=== PATIENT | male | born 1970 | race Caucasian/White ===

== ENCOUNTER 2022-09-14 16:40 | Emergency (ER) | payer BC, SELFPAY ==
--- NOTE | 2022-09-14 16:40 | ECG_ITS ---
APPROVED REPORT Exam: Resting ECG HR:64 bpm ECG Measurements Heart Rate [address] 160 P 39 QRSd 93 QRS 33 QT 378 T 18 QTc 388 Conclusion SINUS RHYTHM NONSPECIFIC T-WAVE ABNORMALITY BORDERLINE ECG UNCONFIRMED REPORT Electronically signed by : Fabian Freeman MD 09/16/2022 16:53:50
[2022-09-14 16:42] VITALS: BP 163/99; PULSE 77; RESP 18; TEMP 36.6; O2SAT 99; BMI 28.9
--- NOTE | 2022-09-14 17:13 | XR_ITS ---
PROCEDURE INFORMATION: Exam: XR Chest Exam date and time: 09/14/2022 5:34 PM Age: 52 years old Clinical indication: Sternal or substernal pain; Additional info: Chest pain TECHNIQUE: Imaging protocol: Radiologic exam of the chest. Views: 1 view. COMPARISON: No relevant prior studies available. FINDINGS: Tubes, catheters and devices: Surgical clips project over gastric region. Lungs: Low lung volumes. Pulmonary vasculature grossly normal. Somewhat bandlike alveolar density in the left lung base, atelectasis versus pneumonia. Pleural spaces: No pleural effusion. No pneumothorax. Heart/Mediastinum: Heart size within normal limits for portable AP technique. No tracheal/mediastinal shift. Bones/joints: No acute osseous abnormalities are identified. IMPRESSION: Alveolar opacity in the left lung base, atelectasis versus pneumonia.
[2022-09-14 17:22] LABS: Basophils # 0.1 K/mm3 (0-0.2); Eosinophils # 0.1 K/mm3 (0.0-0.4); Eosinophils % 1.5 % (0.1-12.0); Hematocrit 46.3 % (42.0-52.0); Hemoglobin 15.3 g/dL (14.1-18.0); Lymphocytes % 31.7 % (10-50); Mean Corpuscular Volume 91.1 fl (80-94); Mean Platelet Volume 9.6 fl (7.4-10.4); Monocytes # 0.3 K/mm3 (0.1-1.0); Monocytes % 5.3 % (1.7-9.3); Neutrophils # 3.9 K/mm3 (1.8-7.8); Neutrophils % 60.6 % (37.0-80.0); Platelet Count 207 K/mm3 (142-424); Red Blood Count 5.09 M/mm3 (4.60-6.20); Red Cell Distribution Width 13.5 % (11.5-17.5); White Blood Count 6.4 K/mm3 (4.8-10.8)
[2022-09-14 17:24] LABS: Magnesium 2.1 mg/dl (1.6-2.3)
[2022-09-14 17:29] LABS: C-Reactive Protein 1.2 mg/L (0-4)
[2022-09-14 17:30] VITALS: BP 145/103; PULSE 69; RESP 20; O2SAT 99
[2022-09-14 17:38] LABS: NT Pro Brain Natriuretic Pep. 90.9 pg/mL (0-125)
[2022-09-14 17:39] LABS: Troponin I < 0.01 ng/ml (0.00-0.034)
[2022-09-14 18:00] VITALS: BP 144/98; PULSE 65; RESP 16; O2SAT 98
[2022-09-14 18:15] LABS: Alanine Aminotransferase 30 U/L (12-78); Albumin Level 4.4 g/dl (3.5-5.0); Albumin/Globulin Ratio 1.6 (1.1-1.8); Alkaline Phosphatase 119 U/L (38-126); Anion Gap 10.8 mEq/L (5-15); Aspartate Amino Transferase 35 U/L (17-59); Bilirubin,Total 0.2 mg/dl (0.2-1.3); Blood Urea Nitrogen 22 mg/dl (9-20); Calcium 9.6 mg/dl (8.4-10.2); Carbon Dioxide 27 mmol/L (22.0-30.0); Chloride 105 mmol/L (98-107); Creatinine Clearance Estimated 115 mL/min (50-200); Estimated Glomerular Filt Rate 70 ml/min (>60); GFR (African American) 85 ML/MIN (>60); Globulin 2.7 g/dL (1.3-3.2); Glucose 131 mg/dl (74-100); Potassium 3.8 mmoL/L (3.5-5.1); Sodium 139 mmol/L (136-145); Total Protein,Serum 7.1 g/dl (6.3-8.2)
[2022-09-14 18:30] VITALS: BP 144/94; PULSE 60; RESP 18; O2SAT 99
--- NOTE | 2022-09-14 19:32 | [facility].EDCP ---
Discharge Plan Disposition Patient Disposition: Home, Self-Care Condition: Good Referrals Follow up/Referrals: Lucio Reid MD [Staff Physician] - See instructions Provider,MD Dev [Primary Care Provider] - See instructions Fabian Freeman MD [Staff Physician] - See instructions Clinical Impressions Clinical Impression: Chest pain Instructions Patient Instructions: DI for Chest Pain Discharge ED Provider: Bonifacio Rodriges Chest Pain HPI General Chief Complaint: Chest Pain Stated Complaint: chest pain Time Seen by Provider: 09/14/22 17:00 Mode of Arrival: Ambulatory Source of Information: Patient Limitations: No Limitations Description of Symptoms (Recalled from ER Triage Doc. by RN): c/o center chest pain that started a few days ago. Denies any radiation. History of Present Illness HPI narrative: Patient is a 52-year-old male with no pertinent past medical history who presents with chest pain. He says that he moved to [place] 4 years ago. He has not ever establish care with a PCP while here. He says he has no medical problems. He says that he has started to get some right-sided chest pain that has been there intermittently for the last 4 days. It does not radiate anywhere. He denies any neck pain. Denies any arm pain. Denies any numbness or tingling. Denies any nausea or diaphoresis. Denies any shortness of breath. Denies any fever or chills. Denies any abdominal pain. He describes the pain as a pressure. Denies any worsening pain with deep inspiration. JENNIFER Score for Non-Stemi Age of Patient: 50-59 years old Heart Rate: 50-69 bpm Systolic Blood Pressure: 140-159 mmHg Serum Creatinine: 0.80-1.19 mg/dl CHF Killip Class: I-No CHF Other Risk Factors: None Non-Stemi Risk Score: 75 Risk Stratification: 1-108 = Low Risk Related Data Allergies Allergy/AdvReac Type Severity Reaction Status Date / Time No Known Allergies Allergy Verified 09/14/22 17:24 [facility] Disclaimer: The information contained in this section may have been updated after the patient was seen, as this information can be updated by other users. Social History Smoking Status: Never smoker alcohol intake: current current occupational status: employed Travel in the last 8 weeks: None ROS Obtained: Yes All systems reviewed & no additional complaints except as documented A 14 point review of system was obtained and otherwise negative except per HPI Physical Exam General General appearance: alert and in no apparent distress Head Head exam: atraumatic, normocephalic and normal inspection Eye Eye exam: Present normal appearance, PERRL and EOMI ENT ENT exam: Present normal exam, normal oropharynx, mucous membranes moist, TM's normal bilaterally and normal external ear exam Neck Neck exam: Present normal inspection, full ROM and trachea midline; Absent meningismus or lymphadenopathy Chest Chest inspection: Present normal inspection and symmetric chest wall rise; Absent tenderness Respiratory Respiratory exam: Present normal lung sounds bilaterally; Absent respiratory distress Cardiovascular Cardiovascular exam: Present regular rate and normal rhythm; Absent JVD Abdominal Exam Abdominal exam: Present soft and normal bowel sounds; Absent distention, tenderness or guarding Extremities Exam Extremities exam: Present normal inspection, full ROM and normal capillary refill; Absent calf tenderness Back Exam Back exam: Present normal inspection; Absent tenderness Neurological Exam Neurological exam: Present alert and oriented X3 Psychiatric Psychiatric exam: Present normal affect and normal mood Skin Skin exam: Present warm, dry, intact and normal color Lymphatic Lymphatic Findings: no adenopathy Medical Decision Making Medical Records Medical records reviewed: Yes I reviewed the patient's medical records. Brian Inquiry Pt receiving controlled substance: No Vital Signs: 09/14/22 16:42 09/14/22 17:30
[2022-09-14 19:35] VITALS: BP 144/94; PULSE 62; RESP 18; TEMP 37.1; O2SAT 100
== END 2022-09-14 19:45 | disposition home or self-care (01) ==
PROVIDERS: Emergency Provider Student in an Organized Health Care Education/Training Program
DX: R07.9 Chest pain, unspecified (principal); I10 Essential (primary) hypertension
CPT/HCPCS: 71045; 80053; 83735; 83880; 84484; 85025; 86140; 93005; 96361; 96374; 99284

== ENCOUNTER 2023-03-07 11:48 | Emergency (ER) | payer BC, SELFPAY ==
[2023-03-07 12:00] VITALS: BP 128/90; PULSE 86; RESP 19; TEMP 36.7; O2SAT 99; BMI 29.5
--- NOTE | 2023-03-07 12:27 | EXP.UTC ---
Discharge Plan Disposition Patient Disposition: Home, Self-Care Condition: Good Prescriptions Prescriptions: New cyclobenzaprine 10 mg tablet 10 mg PO TID PRN (Reason: muscle spasm) Qty: 15 0RF etodolac 200 mg capsule 200 mg PO Q8H PRN (Reason: pain) Qty: 20 0RF Referrals Follow up/Referrals: Provider,Referral, MD [Primary Care Provider] - See instructions Activity Restrictions/Add. Instructions Additional Instructions/Restrictions: *Etodolac dank 8 hours with meal as needed for pain/inflammation *Remember you had a Toradol shot in the clinic today, which is similar to Etodolac so dont start until late tonight *Not additional anti-inflammatory like Ibuprofen motrin, aleve, advil with the above amount of Etodolac. You can still take Tylenol every 4 hours as needed if you need something else for pain *Ice 20 minutes every 2 hours for the first 48 hours after the initial injury followed by moist heat every 20 minutes 3-4 times a day to affected area *Muscle relaxer every 8 hours as needed for muscle spasms but remember, it WILL cause drowsiness You cannot take it and drive, operate machinery or care for small children. *Keep this area active, no movement leads to more stiffness, However take it easy and avoid heavy lifting pushing or pulling *Follow up with you family doctor if no improvement for further treatment Clinical Impressions Clinical Impression: Low back strain Qualifiers: Encounter type: initial encounter Qualified Code(s): S39.012A - Strain of muscle, fascia and tendon of lower back, initial encounter Instructions Patient Instructions: Low Back Pain (Alternative Therapy), DI for Muscle Spasm Discharge ED Provider: Chen Mckenzie [facility] General Stated complaint: Back pain Mode of Arrival: Ambulatory Source of Information: Patient Limitations: No Limitations Time Seen by Provider: 03/07/23 12:27 Description of Symptoms (Recalled from Triage Doc. by RN): PATIENT C/O LOWER BACK PAIN THAT STARTED AFTER HE WAS LIFTING SOMETHING LAST NIGHT HEENT Symptoms (Recalled from RN notes): No Resp Symptoms (Recalled from RN notes): No Skin Symptoms (Recalled from RN notes): No MS Symptoms (Recalled from RN notes): Yes Functional Status (Recalled from RN notes): WNL History of Present Illness Provider Complaint: Patient states that he was doing some heavy lifting last night and felt something pull in his lower back States that ever since he has been having pain in his lower back that at times feels like it catches and feels tight States that he has had back pain before but it would come and go Denies radiation of pain denies loss of control of bowel or bladder Related Data Previous Rx's Medication Instructions Recorded cyclobenzaprine 10 mg tablet 10 mg PO TID PRN muscle spasm #15 03/07/23 tabs etodolac 200 mg capsule 200 mg PO Q8H PRN pain #20 caps 03/07/23 Allergies Allergy/AdvReac Type Severity Reaction Status Date / Time No Known Allergies Allergy Verified 01/10/23 09:45 Worker's Comp Is this a Worker's Comp case?: No [facility] Disclaimer: The information contained in this section may have been updated after the patient was seen, as this information can be updated by other users. Social History Smoking Status: Never smoker alcohol intake: current current occupational status: employed Travel in the last 8 weeks: None ROS Obtained: Yes All systems reviewed & no additional complaints except as documented and Yes Systems reviewed as appropriate & no additional complaints except as documented Constitutional Constitutional: Reports system reviewed and no additional complaints, except as documented, Reports as per HPI, Denies body ache, Denies chills and Denies fever(s) ENT Ears, Nose, Mouth, and Throat: Reports system reviewed and no additional complaints, except as documented and Reports as per HPI Cardiovascular Cardiovascular: Report
--- NOTE | 2023-03-07 12:30 | XR_ITS ---
FINAL REPORT CLINICAL HISTORY: PAIN FROM LIFTING FINDINGS: LUMBAR SPINE Five views were obtained. No fracture is identified. There is mild degenerative disc disease. Alignment is normal. IMPRESSION: Mild degenerative disc disease with no acute bony abnormality. Reviewed, Interpreted and Dictated by Amish Nascimento MD Transcribed by Margarita Mackenzie Authenticated and [facility]
[2023-03-07 12:43] VITALS: BP 128/90; PULSE 86; RESP 19; TEMP 36.7; O2SAT 99
== END 2023-03-07 14:52 | disposition home or self-care (01) ==
PROVIDERS: Emergency Provider Nurse Practitioner
DX: S39.012A Strain of muscle, fascia and tendon of lower back, initial encounter (principal); M62.830 Muscle spasm of back; X50.0XXA Overexertion from strenuous movement or load, initial encounter
CPT/HCPCS: 72100; 96372; 99204; 99212; 99214; G0463

== ENCOUNTER 2024-07-30 12:07 | Outpatient (CLI) | payer BC, SELFPAY ==
[2024-07-30 12:36] LABS: Basophils # 0.1 K/mm3 (0-0.2); Basophils % 1.7 % (0.1-2.0); Eosinophils # 0.1 K/mm3 (0.0-0.4); Hemoglobin 16.8 g/dL (14.1-18.0); Lymphocytes # 1.6 K/mm3 (0.7-4.5); Lymphocytes % 27.4 % (10-50); Mean Corpuscular HGB Conc 33.7 g/dL (31.8-35.4); Mean Corpuscular Hemoglobin 31.6 pg (27.0-31.2); Mean Corpuscular Volume 93.8 fl (80-94); Mean Platelet Volume 9.2 fl (7.4-10.4); Monocytes # 0.3 K/mm3 (0.1-1.0); Monocytes % 5.3 % (1.7-9.3); Neutrophils # 3.9 K/mm3 (1.8-7.8); Neutrophils % 64.6 % (37.0-80.0); Platelet Count 188 K/mm3 (142-424); Red Blood Count 5.33 M/mm3 (4.60-6.20); Red Cell Distribution Width 13.9 % (11.5-17.5)
[2024-07-30 12:49] LABS: Albumin Level 4.6 g/dl (3.5-5.0); Chloride 104 mmol/L (98-107)
[2024-07-30 12:52] LABS: Alanine Aminotransferase 25 U/L (12-78); Alkaline Phosphatase 80 U/L (38-126); Aspartate Amino Transferase 27 U/L (17-59); Bilirubin,Indirect 0.8 mg/dL (0.0-0.9); Bilirubin,Total 0.8 mg/dl (0.2-1.3); Bilirubin,Unconjugated 0.8 mg/dL (0.0-1.1); Blood Urea Nitrogen 20 mg/dl (9-20); Calcium 9.4 mg/dl (8.4-10.2); Carbon Dioxide 26 mmol/L (22.0-30.0); Cholesterol 255 mg/dl (140-200); Estimated Glomerular Filt Rate 78 ml/min (>60); GFR (African American) 94 ML/MIN (>60); Glucose 103 mg/dl (74-100); Total Protein,Serum 7.6 g/dl (6.3-8.2); Triglycerides 139 mg/dl (30-150); VLDL Cholesterol 28 mg/dL (0-40)
[2024-07-30 12:55] LABS: Anion Gap 14.2 mEq/L (5-15); Potassium 4.2 mmoL/L (3.5-5.1); Sodium 140 mmol/L (136-145)
[2024-07-30 12:58] LABS: Chol/HDL Ratio 5.5 (1-3.5); HDL Cholesterol 46 mg/dl (40-60); Magnesium 2.2 mg/dl (1.6-2.3)
[2024-07-30 13:05] LABS: Direct LDL Cholesterol 172.15 mg/dL (100-129)
[2024-07-30 13:23] LABS: Thyroid Stimulating Hormone 0.77 uIU/mL (0.465-4.68)
== END 2024-07-30 23:59 | disposition home or self-care (01) ==
PROVIDERS: PCP Family Medicine; Visit Provider Physician Assistant
DX: I48.20 Chronic atrial fibrillation, unspecified (principal); R94.31 Abnormal electrocardiogram [ECG] [EKG]; R07.89 Other chest pain; R06.00 Dyspnea, unspecified; R42 Dizziness and giddiness
CPT/HCPCS: 36415; 80048; 80061; 80076; 83735; 84439; 84443; 85025

== ENCOUNTER 2024-09-23 06:30 | Outpatient (CLI) | payer MEDICAID, SELFPAY ==
--- NOTE | 2024-09-23 07:13 | CA_ITS ---
APPROVED REPORT EXAM: Comprehensive 2D, Doppler, and color-flow Echocardiogram Hot Frame Tender: Ivette Tabares RT(R) Ht: 6 ft 2 in Wt: 245lbs BSA: 2.37 BP: 145/89 mmHg Indications: CP, Afib, JOSE, KASPER 2D Dimensions Left Atrium 3.62 cm M: 3.0 - 4.0 LVEF (Cortés's) 35.90 % M: 52 - 72 LVOT 2.30 cm (M/F) 1.5-2.5 LV Volume 106.60 mL M: 62 - 150 LV Volume Index 45.0 mL/m2 M: 34 - 74 LA Volume 58.80 mL LA Volume Index 24.81 mL/m2 (M/F) 16-34 EF AP4 48.10 % EF AP2 10.0 % EF BP 35.9 % GL Strain -9.4 % M-Mode Dimensions RVDd 3.31 cm (0.9-2.6) LVDd 4.83 cm (3.5-5.7) Ao Diam 3.01 cm (2.0-3.7) LVDs 3.65 cm (3.5-5.7) IVSd 0.91 cm (0.6-1.1) PWd 0.80 cm (0.6-1.1) EF (Teich) 48.40% FS 24.40% EDV (Teich) 109.10 mL ESV (Teich) 56.30 mL LV Diastology E Decel Time 186 (160-240 msec) E/A Ratio 2.6 MED E' 10.6 (>= 7 cm/sec) E'/MED E' Ratio 8.79 (<= 14) LAT E' 13.1 (>= 10 cm/sec) E/LAT E' Ratio 7.11 (<= 14) Mitral Valve MV E Max Tariq. 93.0 (40-130 cm/s) MV A Velocity 36.0 (40-130 cm/s) E/A Ratio 2.57 MV Decel. Time 186 (160-240 ms) Left Ventricle The left ventricle is normal size. Left ventricular systolic function is mild to moderately decreased. There is increased LV wall thickness. There is mild to moderate global hypokinesis. The septum is asynchronous. LVEF is 40%. Diastolic function is indeterminate. Right Ventricle The right ventricle is normal size. The right ventricular systolic function is normal. Atria Left atrium is moderately dilated. The right atrium is mildly dilated. There is no Doppler evidence of interatrial shunt. Aortic Valve Aortic valve is mildly thickened. There is no aortic valvular stenosis. No aortic regurgitation is present. Mitral Valve The mitral valve leaflets are mildly thickened. No evidence of mitral valve stenosis. Mild to moderate mitral regurgitation. Tricuspid Valve The tricuspid valve leaflets are thin and pliable. Moderate tricuspid regurgitation. RVSP is 30-35 mmHg. Pulmonic Valve The pulmonary valve is normal in structure. Trace pulmonic regurgitation. Great Vessels The aortic root is normal in size. IVC is normal in size and collapses >50% with inspiration. Pericardium There is no pericardial effusion. Other Information Study Quality: Fair Conclusion Mild to moderate reduction in LV systolic function (LVEF 40%). Biatrial dilation. Moderate TR. Mild to moderate MR. Electronically signed by : Maria Victoria Arango MD 10/07/2024 18:47:00
[2024-09-23 07:36] VITALS: BMI 31.4
[2024-09-23 07:49] VITALS: BP 144/99; PULSE 72; RESP 18; TEMP 36.5; O2SAT 98; BMI 31.4
[2024-09-23] MEDS: IVABRADINE HCL 7.5MG TABLET PO (07:57)
[2024-09-23] MEDS: METOPROLOL TARTRATE 50MG TABLET PO (07:58)
[2024-09-23 08:14] LABS: Chloride 105 mmol/L (98-107); Sodium 134 mmol/L (136-145)
[2024-09-23 08:17] LABS: Blood Urea Nitrogen 15 mg/dl (9-20); Creatinine Clearance Estimated 119 mL/min (50-200); Estimated Glomerular Filt Rate 69 ml/min (>60); GFR (African American) 84 ML/MIN (>60)
[2024-09-23 08:18] LABS: Calcium 9.5 mg/dl (8.4-10.2); Carbon Dioxide 31 mmol/L (22.0-30.0); Glucose 100 mg/dl (74-100)
[2024-09-23 09:10] VITALS: BP 154/125; PULSE 75; RESP 20; O2SAT 99
[2024-09-23] MEDS: METOPROLOL TARTRATE 5MG/5ML VIAL 5 MG IV ×2 (09:10→09:20)
[2024-09-23] MEDS: NITROGLYCERIN 0.4MG SL TABLET SL (09:10)
[2024-09-23 09:15] VITALS: BP 146/115; PULSE 60; RESP 20; O2SAT 99
[2024-09-23] MEDS: 0.9 % SODIUM CHLORIDE 50 ML VIAL IV (09:19)
[2024-09-23] MEDS: IOPAMIDOL-370 (76%);100ML BOTTLE 85 ML IV (09:19)
[2024-09-23] MEDS: SODIUM CHLORIDE 0.9% 10ML SYR (RAD ONLY) 10 ML IV (09:19)
[2024-09-23 09:20] VITALS: BP 135/87; PULSE 72; RESP 20; O2SAT 99
[2024-09-23 09:25] VITALS: BP 114/97; PULSE 80; RESP 20; O2SAT 95
[2024-09-23 09:30] VITALS: BP 137/96; PULSE 75; RESP 20; O2SAT 95
== END 2024-09-23 10:36 | disposition home or self-care (01) ==
PROVIDERS: PCP Family Medicine; Visit Provider Physician Assistant
DX: I48.20 Chronic atrial fibrillation, unspecified (principal); R94.31 Abnormal electrocardiogram [ECG] [EKG]; R07.89 Other chest pain; R42 Dizziness and giddiness; R06.00 Dyspnea, unspecified
CPT/HCPCS: 75574; 80048; 93306; Q9967

== ENCOUNTER 2024-10-17 07:16 | Day surgery (SDC) | payer MEDICAID, SELFPAY ==
[2024-10-17 07:22] VITALS: BMI 31.1
[2024-10-17 07:32] VITALS: BP 152/100; PULSE 83; PULSE 96; RESP 20; TEMP 36.1; O2SAT 95
[2024-10-17 08:14] VITALS: BP 149/100; PULSE 60; RESP 20; O2SAT 98
--- NOTE | 2024-10-17 08:15 | ECG_ITS ---
APPROVED REPORT Exam: Resting ECG HR:59 bpm ECG Measurements Heart Rate 59 AXES [place] 176 P 45 QRSd 88 QRS 25 QT 405 T 18 QTc 404 Conclusion SINUS BRADYCARDIA BORDERLINE ECG UNCONFIRMED REPORT Electronically signed by : Fabian Freeman MD 10/18/2024 09:18:52
[2024-10-17] MEDS: FENTANYL 100MCG/2ML VIAL 50 MCG IV (08:17)
[2024-10-17] MEDS: MIDAZOLAM HCL 1MG/ML 5ML VIAL 1 MG IV (08:18)
[2024-10-17] MEDS: 0.9 % SODIUM CHLORIDE 1000ML 1,000 ML 25 ML IV (08:18)
[2024-10-17 08:21] VITALS: BP 138/94; PULSE 65; RESP 20; O2SAT 95
--- NOTE | 2024-10-17 08:24 | SUR.PHASEII ---
successful cardioversion
--- NOTE | 2024-10-17 08:33 | EXP.CARDIOVE ---
[facility] Cardioversion Cardioversion Date: 10/17/24 Provider:: JOSE DE JESUS Mora Procedure Performed:: Synchronized electrical cardioversion Diagnosis:: Atrial fibrillation Procedure Summary:: Patient was brought to the cardiac [facility] as an outpatient. After informed consent was obtained, patient was given a combination of Versed and fentanyl to obtain adequate sedation. During sedation patient was prepped and received a single synchronized 120 J shock converting him from atrial fibrillation to sinus rhythm. No complications noted. Complications:: None Conculsion:: Successful electrical cardioversion
[2024-10-17 08:40] VITALS: BP 128/85; PULSE 71; RESP 18; O2SAT 95
== END 2024-10-17 08:46 | disposition home or self-care (01) ==
PROVIDERS: Internal Medicine; PCP Family Medicine; Visit Provider Internal Medicine
PROC: 5A2204Z Restoration of Cardiac Rhythm, Single (ICD-10-PCS; principal; 2024-10-17 10:00)
DX: I48.20 Chronic atrial fibrillation, unspecified (principal); R94.31 Abnormal electrocardiogram [ECG] [EKG]; I42.8 Other cardiomyopathies; G47.33 Obstructive sleep apnea (adult) (pediatric)
CPT/HCPCS: 92960; 93005; 99152; J2250; J3010; J7030

== ENCOUNTER → 2024-10-30 06:54 | Outpatient (CLI) | payer MEDICAID, SELFPAY | LOC: SL 06:55 | PROVIDERS: PCP Physician Assistant; Visit Provider Physician Assistant | DX: G47.33 Obstructive sleep apnea (adult) (pediatric) (principal); R40.0 Somnolence; R42 Dizziness and giddiness; R06.00 Dyspnea, unspecified; I48.20 Chronic atrial fibrillation, unspecified; R94.31 Abnormal electrocardiogram [ECG] [EKG]; R07.89 Other chest pain | CPT/HCPCS: G0399 ==